=== PATIENT | female | born 1995 | race Caucasian/White ===

== ENCOUNTER 2016-07-01 21:20 | Emergency (ER) | payer OTHER ==
[2016-07-01 22:38] VITALS: BP 122/84
--- NOTE | 2016-07-01 22:38 | UC ---
FLU HPI - HPI Summary HPI Summary: Pt presents with c/o of cough, sob with exertion, generalized malaise, X 2-3 days. Pt states she has had exposure to H.pylori.. - History of Current Complaint Stated Complaint: FEVER CHEST CONGESTION Time Seen by Provider: 07/01/16 21:58 Hx Obtained From: Patient ?: No Onset/Duration: Gradual Onset, Lasting Days Severity Currently: Mild Severity Initially: Mild Associated Signs & Symptoms: Positive: Cough - with exertion - Allergy/Home Medications Allergies/Adverse Reactions: Allergies Allergy/AdvReac Type Severity Reaction Status Date / Time No Known Allergies Allergy Verified 07/01/16 22:30 Home Medications: Home Medications Ggyrtjt-Xilpkrwtqcvur-Xeuemawq [Excedrin Migraine] 2 tab PO ONCE 07/01/16 [ History Confirmed 07/01/16] PMH/Surg Hx/FS Hx/Imm Hx Previously Healthy: Yes - Family History Known Family History: Positive: Other - positive FMH for URI - Social History Occupation: Student - at [employer] Review of Systems Constitutional: Fatigue Skin: Negative Eyes: Negative ENT: Other - occasional "heart burn" Respiratory: Shortness Of Breath - with exertion, Cough Cardiovascular: Negative Gastrointestinal: Negative Genitourinary: Negative Motor: Negative Neurovascular: Negative Musculoskeletal: Negative Neurological: Headache - occasional Psychological: Negative All Other Systems Reviewed And Are Negative: Yes Physical Exam Triage Information Reviewed: Yes Appearance: Well-Appearing Vital Signs Reviewed: Yes Eye Exam: Normal ENT Exam: Normal Neck exam: Normal Respiratory Exam: Normal Cardiovascular Exam: Normal Musculoskeletal Exam: Normal Neurological Exam: Normal Psychological Exam: Normal Skin Exam: Normal Flu Course/Dx - Differential Dx/Diagnosis Differential Diagnosis/HQI/PQRI: Influenza, Upper Respiratory Infection Provider Diagnoses: viral syndrome. Bronchitis Discharge - Discharge Plan Condition: Stable Disposition: HOME Prescriptions: Albuterol HFA INHALER* [Ventolin HFA Inhaler*] 1 - 2 puff INH Q4H PRN #1 mdi PRN Reason: Sob/Wheezing Patient Education Materials: Viral Syndrome (ED) Referrals: [facility] [place] [facility] [Outside] Additional Instructions: Please follow up with your PCP or return to clinic as needed.
[2016-07-01] MEDS ORDERED: Acetaminophen TAB* 325 MG PO ONE (22:43)
== END 2016-07-01 23:00 | disposition home or self-care (01) ==
LOC: UCEAST 21:20
DX: B34.9 Viral infection, unspecified (principal); J40 Bronchitis, not specified as acute or chronic
CPT/HCPCS: 87502; 99202; A9270-GY; G0463